=== PATIENT | male | born 1960 | race African-American/Black ===

== ENCOUNTER 2022-06-09 14:14 | Emergency (ER) | payer MEDICAID ==
[~2022-06-09] VITALS: Ht 177.8 cm; Wt 80.0 kg
[2022-06-09 14:22] VITALS: BP 156/99
[2022-06-09] MEDS ORDERED: ACETAMINOPHEN 325MG TABLET PO ONE (16:15)
== END 2022-06-09 16:47 | disposition home or self-care (01) ==
LOC: ER 14:14
DX: S50.12XA Contusion of left forearm, initial encounter (principal); Y00.XXXA Assault by blunt object, initial encounter; Y93.89 Activity, other specified; Y92.811 Bus as the place of occurrence of the external cause; I69.354 Hemiplegia and hemiparesis following cerebral infarction affecting left non-dominant side
CPT/HCPCS: 73090; 99283